=== PATIENT | female | born 1980 | race African-American/Black ===

== ENCOUNTER 2025-10-25 14:28 | Inpatient (IN) | payer MEDICAID, OTHER ==
[~2025-10-25] VITALS: Ht 172.7 cm; Wt 113.4 kg
--- NOTE | 2025-10-25 14:40 | ED.PDOC ---
HPI Comments This is a 44 year old female presenting to the ED with chief complaint of chest pain. Patient reports that she has been experiencing left sided chest heaviness with associated SOB, radiation of pain to her back, shoulders, and arms for the past 30 minutes. Patient relays that she has history of 2 heart attacks in the past along with stents placed. Patient denies any N/V, abdominal pain, headache, dizziness, or syncope. Chief Complaint: Chest Pain Time Seen by MD: 14:38 Reviewed Notes: Nurses Notes, Medications, Allergies Allergies: Coded Allergies: No Known Drug Allergy (Verified Allergy, Unknown, 10/25/25) Information Source: Patient Mode of Arrival: Ambulatory Severity: Moderate Timing: Minutes Duration: Since onset Prehospital treatment: None Location: Chest (L) Radiation: Back, Shoulder (R), Shoulder (L), Arm (R), Arm (L) Quality: Heavy Onset: At Rest Cardiac Risk Factors: HTN, Diabetes PE Risk Factors: None History of: Similar pain in past, NV, Aortic Disease Associated Signs and Symptoms: SOB Past Medical History PAST MEDICAL HISTORY: CAD, DM, HTN, NV 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 Family History Family History: Reviewed,noncontributory to illness Social History Smoker: Non-Smoker Alcohol: Denies ETOH Use Drugs: Denies Drug Use Lives In: Home Constitutional: denies: chills, diaphoresis, fatigue, fever, malaise, sweats, weakness, others EENTM: denies: blurred vision, double vision, ear bleeding, ear discharge, ear drainage, ear pain, ear ringing, eye pain, eye redness, hearing loss, mouth pain, mouth swelling, nasal discharge, nose bleeding, nose congestion, nose pain, photophobia, tearing, throat pain, throat swelling, voice changes, others Respiratory: reports: shortness of breath; denies: cough, hemoptysis, orthopnea, SOB at rest, SOB with excertion, stridor, wheezing, others Cardiovascular: reports: chest pain; denies: dizzy spells, diaphoresis, Dyspnea on exertion, edema, irregular heart beat, left arm pain, lightheadedness, palpitations, PND, syncope, others Gastrointestinal: denies: abdomen distended, abdominal pain, blood streaked bowels, constipated, diarrhea, dysphagia, difficulty swallowing, hematemesis, melena, nausea, poor appetite, poor fluid intake, rectal bleeding, rectal pain, vomiting, others Genitourinary: denies: abnormal vagina bleeding, burning, dyspareunia, dysuria, flank pain, frequency, hematuria, incontinence, pain, , vagina discharge, urgency, others Neurological: denies: dizziness, fainting, headache, left sided numbness, left sided weakness, numbness, paresthesia, pre-existing deficit, right sided numbness, right sided weakness, seizure, speech problems, tingling, tremors, weakness, others Musculoskeletal: reports: others (Bilat arm pain); denies: back pain, gout, joint pain, joint swelling, muscle pain, muscle stiffness, neck pain Integumetry: denies: bruises, change in color, change in hair/nails, dryness, l aceration, lesions, lumps, rash, wounds, others Allergic/Immunocompromised: denies: Difficulty Healing, Frequent Infections, Hives, Itching, others Hematologic/Lymphatic: denies: anemia, blood clots, easy bleeding, easy bruising, swollen glands, others Endocrine: denies: excessive hunger, excessive sweating, excessive thirst, excessive urination, flushing, intolerance to cold, intolerance to heat, unexplained weight gain, unexplained weight loss, others Psychiatric: denies: anxiety, bipolar disorder, depression, hopeless, panic disorder, schizophrenia, sleepless, suicidal, others All Other Systems: Reviewed and Negative Physical Exam General Appearance: Moderate Distress, Normal HEENT: Normal ENT Inspection, Pharynx Normal, TMs Normal Neck: Full Range of Motion, Non-Tender, Normal, Normal Inspection Respiratory: Chest Non-Tender, Lungs Clear, No Accessory Muscle Use, No Respiratory Distress, Normal Breath Sounds Cardiovascular: No Edema, No JVD, No Murmur, No Gallop, Normal Peripheral Pulses, Regular Rate/Rhythm Breast Exam: Deferred Gastrointestinal: No Organomegaly, Non Tender, No Pulsatile Mass, Normal Bowel Sounds, Soft Genitalia: Deferred Pelvic: Deferred Rectal: Deferred Extremities: No calf tenderness, Normal capillary refill, Normal inspection, Normal range of motion, Non-tender, No pedal edema Musculoskeletal : Apperance: Normal Neurologic: Alert, manager bank II-XII nml as Tested, No Motor Deficits, Normal Affect, Normal Mood, No Sensory Deficits Cerebellar Function: Normal Reflexes: Normal Skin: Dry, Normal Color, Warm Peripheral Pulses: 3+ Radial (R), 3+ Radial (L) Lymphatic: No Adenopathy EKG EKG : Pulse Rate (adult): 77 Cardiac Rhythm: NSR Was a procedure done? Was a procedure done?: No CP Differential Dx Differential Diagnosis: A-fib, A-Flutter, Angina, Anxiety / Panic Attack, Atrial Dysrhythmia, Electrolyte Disorder X-Ray, Labs, Meds, VS Vital Signs Date Time Temp Pulse Resp B/P (MAP) Pulse Ox O2 Delivery O2 Flow Rate FiO2 10/25/25 14:30 98.2 77 16 165/103 100 98.2 Patient alert. Came in because of chest pain. Blood pressure elevated. Saturation pristine on room air. EKG reviewed does not show any acute changes. Was given clonidine. Strong history of coronary artery disease. Possibly will need echocardiogram. Stress test. Explained to the patient. Continue monitoring. Time of 1ST Reevaluation: 15:37 Reevaluation 1ST: Unchanged Patient Education/Counseling: Diagnosis, Treatment Family Education/Counseling: No Family Present SEPSIS Sepsis Screen Date sepsis recognized/suspect: Oct 25, 2025 Time Sepsis recognized/suspect: 1433 Recent Procedure: No On Antibiotic Therapy: No Respiratory Rate >20: No Heart Rate >90: No Temp<36 C (96.8 F) or >38.3 C: No SBP <90 or MAP <65 mmHG: No New Acute Mental Status Change: No Is the patient on CPAP, BIPAP,: No Physician Orders Complete Blood Count (10/25/25 14:31) Urinalysis (10/25/25 14:31) Troponin-I Hs (10/25/25 14:31) Troponin-I Hs (10/25/25 15:31) Troponin-I Hs (10/25/25 17:31) Basic Metabolic Panel (10/25/25 14:31) Vital Signs Date Time Temp Pulse Resp B/P (MAP) Pulse Ox O2 Delivery O2 Flow Rate FiO2 10/25/25 14:30 98.2 77 16 165/103 100 98.2 Departure 1 Departure Time of Disposition: 14:58 Impression: Primary Impression: Chest pain of unknown etiology Disposition: ADMITTED INPATIENT Admit to: Med Surg Condition: Guarded Critical Care Note Critical Care Time?: No Stability Stability form required: No Heart Score Heart Score: Heart Score Response (Comments) Value History Highly Suspicious 2 EKG Normal 0 Age 45-64 1 Risk Factors >3 or Hx ASHD 2 Troponin Normal limit 0 Total 5 I personally scribed for TANIA WU MD ([email or web address]) on 10/25/25 at 14:40. Electronically submitted by Teo Fofana ([email or web address]). TANIA WU MD Oct 25, 2025 14:40
[2025-10-25 15:04] LABS: Hemoglobin 11.7 g/dL (12.2-16.2)
[2025-10-25 15:06] LABS: Hematocrit 36.3 % (36.0-46.0); Mean Corpuscular Hemoglobin 25.5 pg (28.0-32.0); Mean Corpuscular Volume 79.5 fL (80.0-100.0); Nucleated Red Blood Cells % 0.0 %
--- NOTE | 2025-10-25 15:08 | ECG ---
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
[2025-10-25 15:12] LABS: Chloride 105 mmol/L (98-107); Potassium 4.0 mmol/L (3.5-5.1); Sodium 142 mmol/L (136-145)
[2025-10-25 15:13] LABS: Anion Gap 9 (5-15); Carbon Dioxide 28 mmol/L (20-31)
[2025-10-25 15:14] LABS: Calcium 9.4 mg/dL (8.7-10.4)
[2025-10-25 15:18] LABS: Glucose 76 mg/dL (74-106)
[2025-10-25 15:19] LABS: BUN/Creatinine Ratio 8.7 (10.0-20.0)
[2025-10-25 15:20] LABS: Blood Urea Nitrogen 8 mg/dL (9-23)
--- NOTE | 2025-10-25 15:30 | DVH ---
CHEST RADIOGRAPH Indication: sob Technique: Single frontal view of the chest was obtained COMPARISON: None FINDINGS: Lines and Tubes: None Lungs: Clear Pleura: No effusion. No pneumothorax. Cardiomediastinal contours: Unremarkable Bones: Unremarkable IMPRESSION: No acute disease.
[2025-10-25 17:19] LABS: Urine Protein, UAD Negative (Negative)
[2025-10-25] MEDS ORDERED: ACETAMINOPHEN 325 MG TAB PO PRN (17:45)
[2025-10-25] MEDS ORDERED: DEXTROSE (50%) 50ML SYRG IV PRN (17:45)
--- NOTE | 2025-10-25 17:59 | DVHHP2 ---
History of Present Illness History of Present Illness 44-year-old female with a past medical history of coronary artery disease (diagnosed in 2014 during ), hypertension, and diabetes who presents with chest pressure that radiates to the jaw and bilateral arm numbness. Pain is exertional and worsens with walking. She has not followed with cardiology for many years. EKG is normal without ST-segment elevations. Serial troponins are negative. CBC, BMP, UA, and urine tox are normal. Chest X-ray is unremarkable. Home medications include [place], Tizanidine, Naloxone, Omeprazole, and Oxybutynin. Blood pressures on arrival were elevated, up to 165/103 and later 146/86. She will be admitted for further evaluation. PMH: Coronary artery disease (2014), hypertension, diabetes. PSH: Denies major surgeries on interview. Social history: Denies tobacco, alcohol, or drug use. Lives independently. Review of Systems Review of Systems ROS: Denies fever, chills, cough, palpitations, abdominal pain, nausea, vomiting, urinary symptoms, focal weakness, or vision changes. Allergies: Coded Allergies: No Known Drug Allergy (Verified Allergy, Unknown, 10/25/25) Medications Current Medications Medications Dose Ordered Sig/Karthik Route Start Time Stop Time Status Last Admin Dose Admin Acetaminophen 650 mg Q6HP PRN PO 10/25/25 17:45 UNV Acetaminophen/ Hydrocodone Bitart 1 tab Q4HP PRN PO 10/25/25 17:45 UNV Enoxaparin Sodium 40 mg DAILY SC 10/26/25 10:00 UNV Aspirin 81 mg DAILY PO 10/26/25 10:00 UNV Diagnostic Test (Pha) 1 strip ACHS 10/25/25 22:00 UNV Insulin Human Regular ACHS SC 10/25/25 22:00 UNV Dextrose 50 ml UD PRN IV 10/25/25 17:45 UNV Losartan Potassium 50 mg DAILY PO 10/25/25 17:45 UNV Exam Vital Signs Vital Signs Date Time Temp Pulse Resp B/P (MAP) Pulse Ox O2 Delivery O2 Flow Rate FiO2 10/25/25 16:13 98.5 74 16 146/86 (106) 99 98.5 Exam Physical exam: General: Alert, no acute distress. Lungs: Clear to auscultation bilaterally. Heart: Regular rate and rhythm, no murmurs. Abdomen: Soft, non-tender. Extremities: No edema. Neuro: Nonfocal. Skin: Warm, dry. Labs/Xrays Labs Test 10/25/25 16:58 10/25/25 15:25 10/25/25 14:40 Range/Units Urine Color Colorless Yellow Urine Clarity Clear Clear Urine pH 7.0 5.0-9.0 Urine Specific [place] 1.011 1.001-1.035 Urine Protein Negative Negative Urine Ketones Negative Negative Urine Blood Negative Negative /uL Urine Nitrite Negative Negative Urine Bilirubin Negative Negative Urine Urobilinogen Normal Negative mg/dL Urine Leukocyte Esterase Negative Negative /uL Urine RBC <1 0 - 4 /hpf Urine Microscopic WBC < 1 0-5 /HPF Urine Squamous Epithelial Cells Few <5 /hpf Urine Bacteria None seen None Seen /hpf Urine Glucose Normal Normal mg/dL Troponin I High Sensitivity 3 L </=34 ng/L White Blood Count 6.2 4.4-10.8 10^3/uL Red Blood Count 4.57 4.0-5.20 10^6/uL Hemoglobin 11.7 L 12.2-16.2 g/dL Hematocrit 36.3 36.0-46.0 % Mean Corpuscular Volume 79.5 L 80.0-100.0 fL Mean Corpuscular Hemoglobin 25.5 L 28.0-32.0 pg Mean Corpuscular Hemoglobin Concent 32.1 32.0-36.0 g/dL Red Cell Distribution Width 18.5 H 11.8-14.3 % Platelet Count 181 140-450 10^3/uL Mean Platelet Volume 9.0 6.9-10.8 fL Neutrophils (%) (Auto) 50.8 37.0-80.0 % Lymphocytes (%) (Auto) 37.8 10.0-50.0 % Monocytes (%) (Auto) 9.3 0.0-12.0 % Eosinophils (%) (Auto) 1.3 0.0-7.0 % Basophils (%) (Auto) 0.8 0.0-2.0 % Neutrophils # (Auto) 3.1 1.6-8.6 10 ^3/uL Lymphocytes # (Auto) 2.3 0.4-5.4 10 ^3/uL Monocytes # (Auto) 0.6 0-1.3 10 ^3/uL Eosinophils # (Auto) 0.1 0-0.8 10 ^3/uL Basophils # (Auto) 0 0-0.2 10 ^3/uL Nucleated Red Blood Cells 0.0 % Sodium Level 142 136-145 mmol/L Potassium Level 4.0 3.5-5.1 mmol/L Chloride Level 105 98-107 mmol/L Carbon Dioxide Level 28 20-31 mmol/L Anion Gap 9 5-15 Blood Urea Nitrogen 8 L 9-23 mg/dL Creatinine 0.92 0.550-1.02 mg/dL Glomerular Filtration Rate Calc 78 >90 mL/min BUN/Creatinine Ratio 8.7 L 10.0-20.0 Serum Glucose 76 74-106 mg/dL Calcium Level 9.4 8.7-10.4 mg/dL SEPSIS Sepsis Screen Date sepsis recognized/suspect: Oct 25, 2025 Time Sepsis recognized/suspect: 1433 Recent Procedure: No On Antibiotic Therapy: No Respiratory Rate >20: No Heart Rate >90: No Temp<36 C (96.8 F) or >38.3 C: No SBP <90 or MAP <65 mmHG: No New Acute Mental Status Change: No Is the patient on CPAP, BIPAP,: No Physician Orders Troponin-I Hs (10/25/25 17:31) Chest Portable (10/25/25 15:00) Electrocardigram (10/25/25 16:06) Admit (10/25/25 17:42) Code Status (10/25/25 17:42) Vital Signs .PER UNIT PROTOCOL (10/25/25 17:42) Review Orders With Adm. (10/25/25 17:42) Consistent Carb(Ccho)Diabetes (10/25/25 Dinner) Acetaminophen Tablet (Tylenol Tablet) (10/25/25 17:45) Notify Md Of Changes From Base (10/25/25 17:42) Advance Directive (10/25/25 17:42) Echo 2d Mode Cardiac Dop (10/25/25 17:42) Patient Condition (10/25/25 17:42) Allergies (10/25/25 17:42) Hydrocodone-Acet 5/325mg Tab ([place] 5/32 (10/25/25 17:45) Drug Screen (10/25/25 17:42) Hemoglobin A1c (10/25/25 17:42) Enoxaparin Sodium (Lovenox) (10/26/25 10:00) Oxygen By Nasal Cannula (10/25/25 17:42) Stat Ekg For Chest Pain (10/25/25 17:42) Notify Of Changes From Base (10/25/25 17:42) Gizzard Skin Remover For 24 Hours (10/25/25 17:42) Emergency Dysrhythmia Protocol (10/25/25 17:42) Rhythm Strips Once Every Shift (10/25/25 17:42) Aspirin Chewable Tablet (10/26/25 10:00) Glucose Blood (Accu-Chek Comfort Curve T (10/25/25 22:00) Insulin R (Human) (Insulin R) (10/25/25 22:00) Dextrose 50% Syringe (10/25/25 17:45) Losartan Tablet (Cozaar Tablet) (10/25/25 17:45) * Cardiology Consult (10/25/25 17:50) Vital Signs Date Time Temp Pulse Resp B/P (MAP) Pulse Ox O2 Delivery O2 Flow Rate FiO2 10/25/25 16:13 98.5 74 16 146/86 (106) 99 98.5 10/25/25 15:24 71 10/25/25 14:40 77 10/25/25 14:36 77 10/25/25 14:30 98.2 77 16 165/103 100 98.2 Laboratory Tests Test 10/25/25 14:40 White Blood Count 6.2 10^3/uL (4.4-10.8) Assessment/Plan Assessment/Plan #Chest pain #Rule out ACS # Coronary artery disease History of CAD with new exertional chest pressure warrants inpatient evaluation for possible unstable angina despite negative initial tests. Continue aspirin and initiate guideline-directed therapy with losartan; obtain cardiology consult for potential stress test or further workup. Aspirin daily # Hypertension BP elevated on arrival and remains above goal, likely from medication nonadherence and pain. Start losartan, monitor pressures closely, adjust antihypertensive regimen as needed during admission. # Diabetes mellitus type [address] on sliding scale insulin Case discussed with Dr Gordon Full code Plan discussed with: Patient, Other My Orders Orders - JOSE M TRAN Procedure Category Date Status Time Admit ADMIT 10/25/25 Transmitted 17:42 Code Status CODE 10/25/25 Transmitted 17:42 Vital Signs VAMSHI 10/25/25 In Process 17:42 Review Orders With VAMSHI 10/25/25 In Process Adm. 17:42 Consistent DIET 10/25/25 Transmitted Carb(Ccho)Diabetes Dinner Acetaminophen Tablet PHA 10/25/25 Logged (Tylenol Tablet) 17:45 Notify Md Of Changes [facility] 10/25/25 In Process From Base 17:42 Advance Directive VAMSHI 10/25/25 In Process 17:42 Echo 2d Mode Cardiac US 10/25/25 Logged DOP 17:42 Patient Condition ORDERS 10/25/25 Transmitted 17:42 Allergies VAMSHI 10/25/25 In Process 17:42 Hydrocodone-Acet PHA 10/25/25 Logged 5/325mg Tab ([place] 17:45 Drug Screen LAB 10/25/25 Logged 17:42 Hemoglobin A1c LAB 10/25/25 In Process 17:42 Enoxaparin Sodium [facility] 10/26/25 Logged (Lovenox) 10:00 Oxygen By Nasal RT 10/25/25 Transmitted Cannula 17:42 Stat Ekg For Chest [facility] 10/25/25 In Process Pain 17:42 Notify Md Of Changes [facility] 10/25/25 In Process From Base 17:42 Gizzard Skin Remover For [facility] 10/25/25 In Process 24 Hours 17:42 Emergency Dysrhythmia [facility] 10/25/25 In Process Protocol 17:42 Rhythm Strips Once [facility] 10/25/25 In Process Every Shift 17:42 Aspirin Chewable [facility] 10/26/25 Logged Tablet 10:00 Glucose Blood [facility] 10/25/25 Logged (Accu-Chek Comfort 22:00 Insulin R (Human) PHA 10/25/25 Logged (Insulin R) 22:00 Dextrose 50% Syringe PHA 10/25/25 Logged 17:45 Losartan Tablet [facility] 10/25/25 Logged (Cozaar Tablet) 17:45 * Cardiology Consult CONS 10/25/25 Transmitted 17:50 Date of Service: Oct 25, 2025 Billing Provider: JOSE M TRAN Common Visit Codes: [id number] INP/OBS CARE (HIGH) JOSE M TRAN Oct 25, 2025 17:59
[2025-10-25 18:33] LABS: Opiate Scree,Urine Neg (NEGATIVE)
[2025-10-25 18:34] LABS: Amphetamine Screen, Urine Neg (NEGATIVE); Barbiturate Scree,Urine Neg (NEGATIVE); Benzodiazephine Screen, Urine Neg (NEGATIVE); Cannabinoid Screen, Urine Neg (NEGATIVE); Cocaine Screen, Urine Neg (NEGATIVE); Phencyclidine Screen, Urine Neg (NEGATIVE)
[2025-10-25] MEDS: LOSARTAN POTASSIUM 50 MG TAB PO SCH (20:09)
[2025-10-25 21:20] VITALS: BP 152/96; PULSE 57; RESP 16; TEMP 97.9; O2SAT 100
[2025-10-25 21:24] VITALS: BP 152/96; PULSE 59; RESP 16; TEMP 97.9; O2SAT 100
[2025-10-25] MEDS: InsuLIN REG 1unit/0.01ml Soln (100units/ml) SC SCH (22:00)
[2025-10-25] MEDS: ACCU-CHEK COMFORT CURVE STRIP VI SCH (22:03)
[2025-10-25] MEDS: HYDROcodone-ACET 5/325MG TAB PO PRN (22:04)
[2025-10-25] MEDS ORDERED: LOSA-533 PO (22:44)
[2025-10-25] MEDS ORDERED: HYDR1TAB97 PO (22:44)
[2025-10-25] MEDS ORDERED: METF-489 PO (22:44)
[2025-10-25] MEDS ORDERED: ASPI1TAB20 PO (22:44)
[2025-10-25] MEDS ORDERED: FLUT250M2 INH (22:50)
[2025-10-25] MEDS ORDERED: OXYB5TAB14 PO (22:50)
[2025-10-25] MEDS ORDERED: RIME75TA PO (22:50)
[2025-10-25] MEDS ORDERED: NITR0.4S29 SL (22:50)
[2025-10-25] MEDS ORDERED: MONT-8 PO (22:50)
[2025-10-25] MEDS ORDERED: EZET10TA22 PO (22:50)
[2025-10-25] MEDS ORDERED: PREG75CA PO (22:50)
[2025-10-25] MEDS ORDERED: ROSU20TA14 PO (22:50)
[2025-10-25] MEDS ORDERED: ERGO2000 PO (22:50)
[2025-10-25] MEDS ORDERED: AML5T PO (22:50)
[2025-10-26] VITALS (12 sets, daily range): BP systolic 120–159; BP diastolic 84–100; PULSE 64–106; RESP 16–20; TEMP 97.3–98.5; O2SAT 96–100
[2025-10-26 03:25] LABS: Mean Corpuscular Hemoglobin 25.6 pg (28.0-32.0)
[2025-10-26 03:27] LABS: Hematocrit 37.0 % (36.0-46.0); Hemoglobin 12.0 g/dL (12.2-16.2); Mean Corpuscular Volume 78.9 fL (80.0-100.0); Nucleated Red Blood Cells % 0.1 %
[2025-10-26 03:35] LABS: Alanine Aminotransferase 23 U/L (7-40); Albumin 4.0 g/dL (3.2-4.8); Alkaline Phosphatase 64 U/L (46-116); Anion Gap 9 (5-15); BUN/Creatinine Ratio 8.0 (10.0-20.0); Bilirubin, Total 0.4 mg/dL (0.2-1.0); Calcium 9.0 mg/dL (8.7-10.4); Carbon Dioxide 27 mmol/L (20-31); Chloride 104 mmol/L (98-107); Sodium 140 mmol/L (136-145); Total Protein 7.6 g/dL (5.7-8.2)
[2025-10-26 03:47] LABS: Blood Urea Nitrogen 7 mg/dL (9-23); Glucose 128 mg/dL (74-106); Potassium 3.4 mmol/L (3.5-5.1)
[2025-10-26] MEDS: ATORVASTATIN 20 MG TAB PO SCH (07:30)
[2025-10-26 08:34] LABS: Hematocrit 42.1 % (36.0-46.0); Hemoglobin 13.3 g/dL (12.2-16.2); Mean Corpuscular Hemoglobin 25.3 pg (28.0-32.0); Mean Corpuscular Volume 80.4 fL (80.0-100.0); Nucleated Red Blood Cells % 0.2 %
[2025-10-26 08:37] LABS: Alanine Aminotransferase 23 U/L (7-40); Albumin 4.2 g/dL (3.2-4.8); Alkaline Phosphatase 71 U/L (46-116); Anion Gap 10 (5-15); BUN/Creatinine Ratio 7.3 (10.0-20.0); Calcium 9.2 mg/dL (8.7-10.4); Carbon Dioxide 24 mmol/L (20-31); Chloride 106 mmol/L (98-107); Glucose 86 mg/dL (74-106); Magnesium 2.1 mg/dL (1.6-2.6); Potassium 4.0 mmol/L (3.5-5.1); Sodium 140 mmol/L (136-145); Total Protein 8.2 g/dL (5.7-8.2)
[2025-10-26 08:38] LABS: Bilirubin, Total 0.5 mg/dL (0.2-1.0)
[2025-10-26 08:40] LABS: Blood Urea Nitrogen 6 mg/dL (9-23)
[2025-10-26] MEDS: ALBUTEROL SULF 2.5 MG/0.5ML(0.5%) NEB SOLN NEB SCH (09:15)
[2025-10-26] MEDS: IPRATROPIUM BROM 0.5 MG/2.5ML INH SOL NEB SCH (09:15)
[2025-10-26] MEDS: methylPREDNISolone SOD SUCC 40 MG/ML VL IV SCH (09:58)
[2025-10-26] MEDS ORDERED: ENOXAPARIN SOD 40 MG/0.4 ML SYRINGE SC SCH (10:00)
[2025-10-26] MEDS: HEPARIN SODIUM (PORCINE) 5000 UNITS/ML 1ML VIAL SC SCH (10:00)
[2025-10-26 11:18] LABS: COVID19 ANTIGEN SOFIA FIA NEGATIVE (NEGATIVE)
--- NOTE | 2025-10-26 12:37 | DVHPNRES ---
Progress Note Date Seen: Oct 26, 2025 Resident Creating Document: JESSICA [address] RESIDENT Medical Necessity Reason Pt with a Central, PICC or Fol: No Subjective Review of Systems 44-year-old female with a past medical history of coronary artery disease, status post PTCA x2 (diagnosed in 2013 during ), hypertension, and diabetes, disc disease, asthma, chronic back pain who presents with chest pain. Chest pain started 3 days before while she was walking, 8/10, intermittent, radiating to the left arm and back, associated shortness of breaths and dry cough, nausea but no vomiting. Patient denied any fever, palpitation, acute joint redness or swelling, diarrhea, change in vision or dysarthria. Patient reported he was taking medicine off and on but not regularly, was not follow up with the PCP or Cardiology due to financial issue. Initial lab workup revealed EKG no acute changes, troponin I and BNP with a normal limit. Hemoglobin A1c 6.0. Chest x-ray no acute abnormality. UDS negative, urinalysis negative for UTI. COVID and flu negative. Pain is exertional and worsens with walking. She has not followed with cardiology for many years. EKG is normal without ST-segment elevations. Serial troponins are negative. CBC, BMP, UA, and urine tox are normal. Chest X-ray is unremarkable. Home medications include [place], Tizanidine, Naloxone, Omeprazole, and Oxybutynin. Blood pressures on arrival were elevated, up to 165/103 and later 146/86. She will be admitted for further evaluation. PMH:coronary artery disease, status post PTCA x2 (diagnosed in 2013 during ), hypertension, and diabetes, disc disease, asthma, chronic back pain PSH: Left ovarian removal due to cyst Social history: Occasional alcoholic, denies smoking or drug abuse, lives with the son and daughter Allergy pork ROS Cardiovascular- d chest pain, shortness of breaths, cough Respiratory cough, shortness of breaths Gastrointestinal- denies any rectal bleeding, nausea or vomiting Musculoskeletal-denies acute joint swelling or tenderness or redness Neurological- denies acute dysarthria, dysphagia, change in vision Psychiatry- denies depression or SI or HI Skin- denies acute rash or purpura Patient was seen today at bedside, labs and chart reviewed, patient has a crackles with a vesicular breath sounds and prolonged expiration on physical examination, pending echo 2D, pending cardiology consult Objective vital signs Vital Sign Date Time Temp Pulse Resp B/P (MAP) Pulse Ox O2 Delivery O2 Flow Rate FiO2 10/26/25 10:07 88 18 99 10/26/25 10:01 Room Air* 0 21 10/26/25 10:01 97.3 120/84 97.3 Total Intake and Output 10/25/25 10/25/25 10/26/25 15:00 23:00 07:00 Intake Total 240 ml Balance 240 ml medications Current Medications Medications Dose Ordered Sig/Karthik Route Start Time Stop Time Status Last Admin Dose Admin Acetaminophen 650 mg Q6HP PRN PO 10/25/25 17:45 Acetaminophen/ Hydrocodone Bitart 1 tab Q4HP PRN PO 10/25/25 17:45 10/25/25 22:04 1 TAB Aspirin 81 mg DAILY PO 10/26/25 10:00 10/26/25 09:58 81 MG Diagnostic Test (Pha) 1 strip ACHS 10/25/25 22:00 10/26/25 06:33 1 STRIP Insulin Human Regular ACHS SC 10/25/25 22:00 Dextrose 50 ml UD PRN IV 10/25/25 17:45 Losartan Potassium 50 mg DAILY PO 10/25/25 17:45 10/26/25 09:59 50 MG Atorvastatin Calcium 20 mg HS PO 10/26/25 07:30 Albuterol 2.5 mg Q4HR NEB 10/26/25 09:15 10/26/25 10:01 2.5 MG Ipratropium [place] 0.5 mg Q4HWA [facility] 10/26/25 09:15 10/26/25 10:01 0.5 MG Methylprednisolone Sodium Succinate 40 mg BID IV 10/26/25 09:15 10/26/25 09:58 40 MG Heparin Sodium (Porcine) 5,000 units Q12HR SC 10/26/25 10:00 Examination General examination- awake, alert, oriented HEENT- PEERLA, no acute nasal discharge Cardiovascular- S1-S2 audible, rate and rhythm regular, no murmur, chest wall tenderness positive on palpation Respiratory- lung crackles, vesicular breath sounds with a prolonged explained Gastrointestinal-nontender, bowel sound+. Nondistended Musculoskeletal-no acute joint swelling or tenderness or redness Lower extremity- no leg edema Neurological- cranial nerves intact, no acute dysarthria or dysphagia Psychiatry- denies depression or SI or HI Skin- no acute rash or purpura laboratory and microbiology Laboratory Tests 10/26/25 08:05 Test 10/26/25 08:05 Range/Units Serum Glucose 86 74-106 mg/dL Problem List/Assessment/Plan Problem List/Assessment/Plan Assessment and plan Acute chest pain, rule out acute coronary syndrome # CAD, status post PTCA x2 in 2014 in [place] # hypertension ## hyperlipidemia -EKG acute ST or T-wave changes -troponin I with a normal limit -BNP with a normal limit -continue aspirin as prescribed -atorvastatin as prescribed -pending echo 2D -pending cardiology consult - # asthma with the acute exacerbation -nebulization with albuterol and ipratropium bromide at the prescribed -methylprednisolone as prescribed # obesity -counseled about the effect of obesity on health Goals of care, Code status full code ; discussed with >15 minutes PUD prophylaxis: Pantoprazole DVT prophylaxis: Heparin Plan discussed with Dr. Gordon , nursing staff, Total time spent on patient evaluation, chart review, assessment and plan, discussion discussion >35 minutes Plan discussed with: Patient, Other (RN) My Orders My Orders Orders - JESSICA STRE[address] RESIDENT Procedure Category Date Status Time Potassium LAB 10/27/25 Verified 04:00 Vitamin B12 LAB 10/26/25 In Process 07:21 Vitamin D, 25-Hydroxy LAB 10/26/25 In Process 07:21 Folate (Folic Acid) LAB 10/26/25 In Process 07:21 Thyroid Stimulating LAB 10/26/25 In Process Hormone 07:21 Atorvastatin (Lipitor) PHA 10/26/25 In Process 07:30 Albuterol Medneb PHA 10/26/25 In Process (Ventolin Medneb) 09:15 Ipratropium Medneb PHA 10/26/25 In Process (Atrovent Medneb) 09:15 Methylprednisolone PHA 10/26/25 In Process Sod Succ (Solu Medrol 09:15 Heparin Sodium PHA 10/26/25 In Process (Porcine) 10:00 Visit Coding STANDARD RES Billing Provider: LUKE GORDON MD Date of Service if different f: Oct 26, 2025 Common Visit Codes: [id number] INP/OBS CARE(HIGH) [address] RESIDENT Oct 26, 2025 12:37
[2025-10-27] VITALS (10 sets, daily range): BP systolic 124–139; BP diastolic 74–90; PULSE 85–113; RESP 16–19; TEMP 97.6–98.6; O2SAT 95–98
[2025-10-27 07:17] LABS: Chloride 105 mmol/L (98-107); Potassium 4.4 mmol/L (3.5-5.1); Sodium 140 mmol/L (136-145)
[2025-10-27 07:18] LABS: Anion Gap 11 (5-15); Calcium 9.9 mg/dL (8.7-10.4); Carbon Dioxide 24 mmol/L (20-31)
[2025-10-27 07:23] LABS: BUN/Creatinine Ratio 11.8 (10.0-20.0); Blood Urea Nitrogen 11 mg/dL (9-23)
[2025-10-27 07:24] LABS: Glucose 143 mg/dL (74-106); Magnesium 2.1 mg/dL (1.6-2.6)
[2025-10-27 09:24] LABS: Triglycerides 82 mg/dL (< 150)
[2025-10-27 09:26] LABS: HDL Cholesterol 57 mg/dL (40-59)
[2025-10-27 09:27] LABS: Cholesterol 238 mg/dL (< 200)
--- NOTE | 2025-10-27 10:07 | ECG ---
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
--- NOTE | 2025-10-27 10:12 | DVHINCON2 ---
Date Seen: Oct 27, 2025 Referring Physician MD Jorge resident Reason for Consultation Chest pain History of Present Illness This is a 44-year-old female patient who presents to emergency room with chief complaint of chest pain. The patient reports that she has been experiencing chest pain for approximately four days. She describes the pain as unprovoked, intermittent, pressure-like in nature, substernal with radiation to her upper back. She denies any aggravating or alleviating factors. Initial twelve lead electrocardiogram reveals normal sinus rhythm with nonspecific ST depression to inferior lead (III). Serial troponin levels have been negative x 3. Signific ant past medical history includes coronary artery disease status post PTCA X 2 ANIBAL (on ASA), myocardial infarction, hypertension, hyperlipidemia, obstructive sleep apnea with CPAP use at night, asthma, type 2 diabetes mellitus, peripheral neuropathy, seizure disorder, and morbid obesity. The patient reports having a myocardial infarction while she was with her daughter in 2013. She reports undergoing a coronary angiogram in 2013 in [place] in which two drug-eluting stents were placed. The patient does not currently follow up with a forepart rounder in the outpatient setting. She does mention a previous stress test in 2021 which she states was normal. Past Medical History Past medical history reviewed. No other significant than mentioned above. Past Surgical History Left oophorectomy Family History: Cardiovascular disease G8 MOTHER FH: kidney disease G8 MOTHER Family History Family history reviewed. Social History Denies the use of tobacco, alcohol or illicit drugs. Allergies: Uncoded Allergies: pork (Allergy, Unknown, 10/26/25) Home Meds Reported Medications Nitroglycerin (NTROSTAT SUBLINGUAL) 0.4 Mg Sl, 0.4 MG SL PRN, TAB *MAY REPEAT EVERY 5 MINUTES X 3 TOTAL IF NO RELIEF, INITIATE ANALGESIC THERAPY. NOTIFY PHYSICIAN *Do not crush. 10/25/25 Ezetimibe (Zetia) 10 Mg Tab, 1 TAB PO DAILY, #30 TAB 5 Refills 10/25/25 Amlodipine Besylate (NORVASC TABLET) 5 Mg Tb, 1 TAB PO DAILY, #30 TAB 5 Refills 10/25/25 Montelukast Sodium (MONTELUKAST SODIUM) 10 Mg Tab, 1 TAB PO DAILY, #30 TAB 5 Refills 10/25/25 Pregabalin (Lyrica) 75 Mg Cap, 1 CAP PO BID, #60 CAP 1 Refill 10/25/25 Rimegepant Sulfate (Nurtec) 75 Mg Tab, 75 MG PO, TAB 10/25/25 Fluticasone-Salmeterol (Advair Diskus 250/50) 1 Puff Ih, 1 PUFF INH BID, #1 INHALER 5 Refills 10/25/25 Ergocalciferol (VITAMIN D2) 2,000 Unit Tab, 46880 UNIT PO QWEEKLY, TAB 10/25/25 Oxybutynin Chloride (Oxybutynin Chloride) 5 Mg Tab, 5 MG PO, TAB 10/25/25 Rosuvastatin Calcium (Crestor) 20 Mg Tab, 1 TAB PO DAILY, #90 TAB 3 Refills 10/25/25 Hydrocodone-Acetaminophen (Hydrocodone/Acetaminophen 5-325 mg) 1 Tab Tab, 1 TAB PO, TAB 10/25/25 Metformin Hydrochloride (METFORMIN HCL ER) 500 Mg Tab, 500 MG PO, TAB 10/25/25 Aspirin (Aspir-81) 81 Mg Tab, 1 TAB PO DAILY, #30 TAB 5 Refills 10/25/25 Losartan Potassium (Losartan Potassium) 25 Mg Tab, 25 MG PO BID, TAB 10/25/25 Home Meds Home medications reviewed. Current Medications Current Medications Medications (Trade) Dose Ordered Sig/Karthik Route PRN Reason Start Time Stop Time Status Last Admin Enoxaparin Sodium (Lovenox) 40 mg DAILY SC 10/26/25 10:00 10/26/25 09:09 DC Aspirin 81 mg DAILY PO 10/26/25 10:00 10/26/25 09:58 Heparin Sodium (Porcine) 5,000 units Q12HR SC 10/26/25 10:00 Review of Systems Constitutional: No symptom reported Ears, Nose, & Throat: No symptom reported Eyes: No symptom reported Neurological: No symptoms reported Pulmonary/Respiratory: No symptoms reported Cardiovascular: Chest pain Gastrointestinal: No symptom reported Genitourinary: No symptom reported Musculoskeletal: No symptom reported Skin: No symptom reported Psychiatric: No symptom reported Endocrine: No symptom reported Hematologic/Lymphatic: No symptom reported Vital Signs Vital Signs Date Time Temp Pulse Resp B/P (MAP) Pulse Ox O2 Delivery O2 Flow Rate FiO2 10/27/25 09:00 97.6 87 16 136/89 (105) 97 97.6 10/27/25 06:49 Room Air 10/27/25 06:49 0 21 Physical Exam General Appearance: Cooperative. Morbidly obese Pulmonary/Respiratory: Clear, bilateral breaths sounds. Cardiovascular/Chest: Regular rate and rhythm. Peripheral Pulses: 2+ Radial (R). 2+ Radial (L). 2+ Pedal (R). 2+ Pedal (L) Abdominal Exam: Normal bowel sounds. Ankle Exam: Negative ankle edema Lower extremities: Negative lower extremity edema Neuro/Mental Status: A/OX4, coherent. Thoughts/Psych: Normal thought pattern. Appropriate mood and affect. Good judgment and insight. Appearance: No acute distress. Skin Exam: Normal inspection. Normal color. Warm and dry. Labs/Diagnostic Data Labs Test 10/27/25 05:45 10/26/25 21:34 10/26/25 09:13 10/26/25 08:05 Range/Units Sodium Level 140 136-145 mmol/L Potassium Level 4.4 3.5-5.1 mmol/L Chloride Level 105 98-107 mmol/L Carbon Dioxide Level 24 20-31 mmol/L Anion Gap 11 5-15 Blood Urea Nitrogen 11 9-23 mg/dL Creatinine 0.93 0.550-1.02 mg/dL Glomerular Filtration Rate Calc 77 >90 mL/min BUN/Creatinine Ratio 11.8 10.0-20.0 Serum Glucose 143 H 74-106 mg/dL Calcium Level 9.9 8.7-10.4 mg/dL Magnesium Level 2.1 1.6-2.6 mg/dL Triglycerides Level 82 < 150 mg/dL Cholesterol Level 238 H < 200 mg/dL LDL Cholesterol 173 H < 100 mg/dL HDL Cholesterol 57 40-59 mg/dL POC Glucose 165 H 70-106 mg/dl Influenza Type A Antigen Negative Negative Influenza Type B Antigen Negative Negative SARS-CoV-2 Antigen (Rapid) Negative NEGATIVE White Blood Count 7.2 4.4-10.8 10^3/uL Red Blood Count 5.24 H 4.0-5.20 10^6/uL Hemoglobin 13.3 12.2-16.2 g/dL Hematocrit 42.1 # 36.0-46.0 % Mean Corpuscular Volume 80.4 80.0-100.0 fL Mean Corpuscular Hemoglobin 25.3 L 28.0-32.0 pg Mean Corpuscular Hemoglobin Concent 31.5 L 32.0-36.0 g/dL Red Cell Distribution Width 18.7 H 11.8-14.3 % Platelet Count 153 140-450 10^3/uL Mean Platelet Volume 9.1 6.9-10.8 fL Neutrophils (%) (Auto) 55.6 37.0-80.0 % Lymphocytes (%) (Auto) 36.3 10.0-50.0 % Monocytes (%) (Auto) 5.9 0.0-12.0 % Eosinophils (%) (Auto) 1.4 0.0-7.0 % Basophils (%) (Auto) 0.8 0.0-2.0 % Neutrophils # (Auto) 4.0 1.6-8.6 10 ^3/uL Lymphocytes # (Auto) 2.6 0.4-5.4 10 ^3/uL Monocytes # (Auto) 0.4 0-1.3 10 ^3/uL Eosinophils # (Auto) 0.1 0-0.8 10 ^3/uL Basophils # (Auto) 0.1 0-0.2 10 ^3/uL Nucleated Red Blood Cells 0.2 % Total Bilirubin 0.5 0.2-1.0 mg/dL Aspartate Amino Transferase (AST) 31 13-40 U/L Alanine Aminotransferase (ALT) 23 7-40 U/L Alkaline Phosphatase 71 46-116 U/L Total Protein 8.2 5.7-8.2 g/dL Albumin 4.2 3.2-4.8 g/dL Test 10/26/25 02:41 10/25/25 17:40 10/25/25 16:58 10/25/25 14:40 Range/Units Vitamin B12 Level 616 211-911 pg/mL Vitamin D 25-Hydroxy 38.4 30.0-100 ng/mL Folic Acid 14.09 >5.38 ng/mL Thyroid Stimulating Hormone (TSH) 3.08 0.55-4.78 uIU/mL Troponin I High Sensitivity 3 L </=34 ng/L Urine Color Colorless Yellow Urine Clarity Clear Clear Urine pH 7.0 5.0-9.0 Urine Specific [place] 1.011 1.001-1.035 Urine Protein Negative Negative Urine Ketones Negative Negative Urine Blood Negative Negative /uL Urine Nitrite Negative Negative Urine Bilirubin Negative Negative Urine Urobilinogen Normal Negative mg/dL Urine Leukocyte Esterase Negative Negative /uL Urine RBC <1 0 - 4 /hpf Urine Microscopic WBC < 1 0-5 /HPF Urine Squamous Epithelial Cells Few <5 /hpf Urine Bacteria None seen None Seen /hpf Urine Glucose Normal Normal mg/dL Urine Opiates Screen Neg NEGATIVE Urine Fentanyl Screen Neg NEGATIVE Urine Barbiturates Screen Neg NEGATIVE Urine Phencyclidine Screen Neg NEGATIVE Urine Amphetamines Screen Neg NEGATIVE Urine Benzodiazepines Screen Neg NEGATIVE Urine Cocaine Screen Neg NEGATIVE Urine Cannabinoids Screen Neg NEGATIVE Hemoglobin A1c 6.0 H <5.7 % A1C Assessment Chest pain, rule out coronary ischemia Coronary artery disease status post PTCA x 2 ANIBAL (on ASA) Rule out structural heart disease History myocardial infarction Hypertension Dyslipidemia Obstructive sleep apnea with CPAP use at night Asthma Peripheral neuropathy Seizure disorder Morbid obesity Plan/Recommendation We will continue with the following plan/recommendations (Dr. Mayorga): * Transthoracic echocardiogram to evaluate cardiac function * Chest pain protocol * HEART score: 4 points * Single antiplatelet therapy and lipid-lowering agent * Nuclear stress test * Upgrade to telemetry for close cardiac surveillance Case discussed with . Given patient's clinical presentation and comorbidities, we will proceed with a nuclear stress test. Plan discussed with the patient in full detail. The patient is agreeable to undergo nuclear stress test. We will schedule the patient at soonest availability on 10/27/2025. T lasha you for allowing us to care for this patient. Please call with any questions or concerns. Critical care time spent: 44 minutes This medical document was created using an electronic medical record system with voice recognition software and computerized dictation system. Although this document has been carefully reviewed, there might still be some phonetic and typ ographical errors. Occasional wrong-word or ``sound-alike substitutions may have occurred due to the inherent limitations of voice recognition software. These areas are purely typographical due to imperfections of the software programs and do not reflect any compromise in the patient's medical care. Please read the chart carefully and recognize, using context, where these subs titutions have occurred. Plan discussed with: Patient NYHA Physical activity limitations: NA Date of Service: Oct 27, 2025 Billing Provider: LEONOR MUNROE Cardiology Common Codes: [id number] INP/OBS CARE (High) Cardiology Consultation Codes: [id number] CONSULT <45MIN LEONOR MUNROE Oct 27, 2025 10:12
[2025-10-27] MEDS: REGADENOSON 0.4 MG/5 ML SYRG IV ONE ×2 (13:35→13:42)
--- NOTE | 2025-10-27 16:35 | DVHPNRES ---
Progress Note Date Seen: Oct 27, 2025 Resident Creating Document: JESSICA STRE[address] RESIDENT Medical Necessity Reason Pt with a Central, PICC or Fol: No Subjective Review of Systems 44-year-old female with a past medical history of coronary artery disease, status post PTCA x2 (diagnosed in 2013 during ), hypertension, and diabetes, disc disease, asthma, chronic back pain who presents with chest pain. Chest pain started 3 days before admission while she was walking, 8/10, intermittent, radiating to the left arm and back, associated shortness of breaths and dry cough, nausea but no vomiting. Patient denied any fever, palpitation, acute joint redness or swelling, diarrhea, change in vision or dysarthria. Patient reported she was taking medicine off and on but not regularly, was not follow up with the PCP or Cardiology due to financial issue. Initial lab workup revealed EKG no acute changes, troponin I and BNP with a normal limit. Hemoglobin A1c 6.0. Chest x-ray no acute abnormality. UDS negative, urinalysis negative for UTI. COVID and flu negative. Pain is exertional and worsens with walking. She has not followed with cardiology for many years. EKG is normal without ST-segment elevations. Serial troponins are negative. CBC, BMP, UA, and urine tox are normal. Chest X-ray is unremarkable. Home medications include [place], Tizanidine, Naloxone, Omeprazole, and Oxybutynin. Blood pressures on arrival were elevated, up to 165/103 and later 146/86. She will be admitted for further evaluation. PMH:coronary artery disease, status post PTCA x2 (diagnosed in 2013 during ), hypertension, and diabetes, disc disease, asthma, chronic back pain PSH: Left ovarian removal due to cyst Social history: Occasional alcoholic, denies smoking or drug abuse, lives with the son and daughter Allergy pork ROS Cardiovascular- d chest pain, shortness of breaths, cough Respiratory cough, shortness of breaths Gastrointestinal- denies any rectal bleeding, nausea or vomiting Musculoskeletal-denies acute joint swelling or tenderness or redness Neurological- denies acute dysarthria, dysphagia, change in vision Psychiatry- denies depression or SI or HI Skin- denies acute rash or purpura Patient was seen today at bedside, labs and chart reviewed, Patient reported chest pain has improved Pending echo 2D Patient was seen by cardiology recommended for nuclear stress test-pending report Objective vital signs Vital Sign Date Time Temp Pulse Resp B/P (MAP) Pulse Ox O2 Delivery O2 Flow Rate FiO2 10/27/25 13:00 98.6 101 16 124/74 (91) 95 98.6 10/27/25 06:49 Room Air 10/27/25 06:49 0 21 Total Intake and Output 10/26/25 10/26/25 10/27/25 15:00 23:00 07:00 Intake Total 550 ml 650 ml Balance 550 ml 650 ml medications Current Medications Medications Dose Ordered Sig/Karthik Route Start Time Stop Time Status Last Admin Dose Admin Acetaminophen 650 mg Q6HP PRN PO 10/25/25 17:45 Acetaminophen/ Hydrocodone Bitart 1 tab Q4HP PRN PO 10/25/25 17:45 10/26/25 21:39 1 TAB Aspirin 81 mg DAILY PO 10/26/25 10:00 10/27/25 11:39 81 MG Diagnostic Test (Pha) 1 strip ACHS 10/25/25 22:00 10/27/25 11:39 1 STRIP Insulin Human Regular ACHS SC 10/25/25 22:00 Dextrose 50 ml UD PRN IV 10/25/25 17:45 Losartan Potassium 50 mg DAILY PO 10/25/25 17:45 10/27/25 11:39 50 MG Atorvastatin Calcium 20 mg HS PO 10/26/25 07:30 10/26/25 21:31 20 MG Albuterol 2.5 mg Q4HR NEB 10/26/25 09:15 10/26/25 14:24 2.5 MG Ipratropium [place] 0.5 mg Q4HWA NEB 10/26/25 09:15 10/26/25 14:24 0.5 MG Methylprednisolone Sodium Succinate 40 mg BID IV 10/26/25 09:15 10/27/25 11:38 40 MG Heparin Sodium (Porcine) 5,000 units Q12HR SC 10/26/25 10:00 Hold Examination General examination- awake, alert, oriented HEENT- PEERLA, no acute nasal discharge Cardiovascular- S1-S2 audible, rate and rhythm regular, no murmur, chest wall tenderness positive on palpation Respiratory- lung crackles, vesicular breath sounds with a prolonged explained Gastrointestinal-nontender, bowel sound+. Nondistended Musculoskeletal-no acute joint swelling or tenderness or redness Lower extremity- no leg edema Neurological- cranial nerves intact, no acute dysarthria or dysphagia Psychiatry- denies depression or SI or HI Skin- no acute rash or purpura laboratory and microbiology Laboratory Tests 10/27/25 05:45 10/26/25 08:05 Test 10/27/25 05:45 Range/Units Serum Glucose 143 H 74-106 mg/dL Problem List/Assessment/Plan Problem List/Assessment/Plan Assessment and plan Acute chest pain, rule out acute coronary syndrome # CAD, status post PTCA x2 in 2014 in [place] # hypertension # hyperlipidemia -EKG acute ST or T-wave changes -troponin I with a normal limit -BNP with a normal limit -continue aspirin as prescribed -atorvastatin as prescribed -Resumed home medication losartan -pending echo 2D report -seen by cardiology recommended for nuclear stress test, pending report # asthma with the acute exacerbation -nebulization with albuterol and ipratropium bromide at the prescribed -resumed home medication montelukast # obesity -counseled about the effect of obesity on health Goals of care, Code status full code PUD prophylaxis: Pantoprazole DVT prophylaxis: Heparin Plan discussed with Dr. Gordon , nursing staff, Total time spent on patient evaluation, chart review, assessment and plan, discussion discussion >35 minutes Plan discussed with: Patient, Other (RN) My Orders My Orders Orders - JESSICA STRE[address] RESIDENT Procedure Category Date Status Time Montelukast Tablet PHA 10/28/25 Verified (Singulair Tablet) 10:00 Visit Coding STANDARD RES Billing Provider: LUKE GORDON MD Date of Service if different f: Oct 27, 2025 Common Visit Codes: [id number] INP/OBS CARE(HIGH) [address]ICA [address] RESIDENT Oct 27, 2025 16:35 QUYNH SANDERS RESIDENT Oct 27, 2025 18:36
[2025-10-27] MEDS: ATORVASTATIN 20 MG TAB PO SCH (22:10)
[2025-10-28] VITALS (8 sets, daily range): BP systolic 135–148; BP diastolic 80–95; PULSE 58–83; RESP 18–19; TEMP 97.4–98.4; O2SAT 95–100
[2025-10-28 07:05] LABS: Anion Gap 10 (5-15); Carbon Dioxide 25 mmol/L (20-31); Chloride 105 mmol/L (98-107); Potassium 4.1 mmol/L (3.5-5.1); Sodium 140 mmol/L (136-145)
[2025-10-28 07:06] LABS: Calcium 9.3 mg/dL (8.7-10.4)
[2025-10-28 07:11] LABS: BUN/Creatinine Ratio 18.0 (10.0-20.0); Blood Urea Nitrogen 16 mg/dL (9-23); Glucose 107 mg/dL (74-106); Magnesium 2.2 mg/dL (1.6-2.6)
[2025-10-28] MEDS ORDERED: IPRATROPIUM BROM 0.5 MG/2.5ML INH SOL NEB PRN (09:00)
[2025-10-28] MEDS ORDERED: ALBUTEROL SULF 2.5 MG/0.5ML(0.5%) NEB SOLN NEB PRN (09:00)
[2025-10-28] MEDS: MONTELUKAST SODIUM 10 MG TAB PO SCH (09:21)
--- NOTE | 2025-10-28 14:43 | DVHSR ---
APPROVED REPORT EXAM: Two-dimensional and M-mode echocardiogram with Doppler and color Doppler. Blood Pressure: 139/90 mmHg INDICATION Chest Pain RISK FACTORS Height: 68, Weight: 250 DIMENSIONS LVDd 4.2 (3.8-5.7cm) LA (2D) 3.7 (1.9-4.0cm) Aortic Root 3.9 (2.0-3.7cm) LVDs 2.7 (2.5-4.0cm) LA (MM) (1.9-4.0cm) Aortic Cusp Exc 2.0 (1.5-2.0cm) EF (%) 65.0 (55-70%) Rt. Atrium 4.0 (1.9-4.0cm) Asc. Aorta cm Mitral Valve Mitral Mitral Stenosis E wave 0.57m/s MV Mean GR. mmHg A wave 0.73m/s MV Peak GR. mmHg E/A ratio 0.8 2D MVA cm2 DECEL Time 167ms PRESS 1/2 Time 43ms IVRT ms Dop MVA 5.10cm2 Aortic Valve Aortic Valve Aortic Stenosis V1 1.23m/s AO Mean GR. 5mmHg V2 1.49m/s AO Peak GR. 9mmHg LVOT Diameter 2.1 (1.8-2.4cm) Doppler PREM 2.86cm2 Pulmonic Valve V2 1.44m/s Conclusion 1) Normal right and left ventricle systolic function with estimated ejection fraction of 60-65%. Normal LV wall motion. LV diastolic function is normal 2) No significant valbular pathology was seen
--- NOTE | 2025-10-28 14:49 | DVHPN2 ---
Consult Progress Note Objective vital signs Vital Sign Date Time Temp Pulse Resp B/P (MAP) Pulse Ox O2 Delivery O2 Flow Rate FiO2 10/28/25 12:40 97.4 58 19 147/94 (111) 100 97.4 10/28/25 10:00 Room Air* 0 21 Total Intake and Output 10/27/25 10/27/25 10/28/25 15:00 23:00 07:00 Intake Total 710 ml 400 ml Balance 710 ml 400 ml medications Current Medications Medications Dose Ordered Sig/Karthik Route Start Time Stop Time Status Last Admin Dose Admin Acetaminophen 650 mg Q6HP PRN PO 10/25/25 17:45 Acetaminophen/ Hydrocodone Bitart 1 tab Q4HP PRN PO 10/25/25 17:45 10/28/25 00:25 1 TAB Aspirin 81 mg DAILY PO 10/26/25 10:00 10/28/25 09:21 81 MG Diagnostic Test (Pha) 1 strip ACHS 10/25/25 22:00 10/28/25 10:40 1 STRIP Insulin Human Regular ACHS SC 10/25/25 22:00 Dextrose 50 ml UD PRN IV 10/25/25 17:45 Losartan Potassium 50 mg DAILY PO 10/25/25 17:45 10/28/25 09:21 50 MG Heparin Sodium (Porcine) 5,000 units Q12HR SC 10/26/25 10:00 Hold Montelukast Sodium 10 mg DAILY PO 10/28/25 10:00 10/28/25 09:21 10 MG Atorvastatin Calcium 80 mg HS PO 10/27/25 22:00 10/27/25 22:10 80 MG Albuterol 2.5 mg Q6HPRN PRN NEB 10/28/25 09:00 Ipratropium [place] 0.5 mg Q6HPRN PRN NEB 10/28/25 09:00 laboratory and microbiology Laboratory Tests 10/28/25 05:23 10/26/25 08:05 Test 10/28/25 05:23 Range/Units Serum Glucose 107 H 74-106 mg/dL Problem List/Assessment/Plan Problem List/Assessment/Plan Chest pain, rule out coronary ischemia Coronary artery disease status post PTCA x 2 ANIBAL (on ASA) Rule out structural heart disease History myocardial infarction Hypertension Dyslipidemia Obstructive sleep apnea with CPAP use at night Asthma Peripheral neuropathy Seizure disorder Morbid obesity Plan/Recommendation We will continue with the following plan/recommendations (Dr. Mayorga): * Transthoracic echocardiogram to evaluate cardiac function * Chest pain protocol * HEART score: 4 points * Single antiplatelet therapy and lipid-lowering agent * Nuclear stress test * Upgrade to telemetry for close cardiac surveillance Case discussed with . Stress test showing apical infarct, no inducible ischemia. Follow up echo with normal EF. Continue medical management no further cardiac intervention indicated at this time, stable for DC from Cardiology standpoint. Thank you for allowing us to participate in this patient's care. Will sign off. Critical care, time spent: 36 minutes This medical document was created using an electronic medical record system with voice recognition software and computerized dictation system. Although this document has been carefully reviewed, there might still be some phonetic and typographical errors. Occasional wrong-word or ``sound-alike substitutions may have occurred due to the inherent limitations of voice recognition software. These areas are purely typographical due to imperfections of the software programs and do not reflect any compromise in the patient's medical care. Please read the chart carefully and recognize, using context, where these substitutions have occurred. Thank you for allowing me to participate in the management of this patient. The treatment plan was discussed with and agreed upon by patient/family including requesting consultants and ordering of imaging/procedures. Plan discussed with: Patient Date of Service: Oct 28, 2025 Billing Provider: WILL SOUZA Common Visit Codes: [id number] INP/OBS CARE(HIGH), [id number] CARE 30-74 MIN WILL SOUZA Oct 28, 2025 14:49
--- NOTE | 2025-10-28 14:57 | DVHDSRES ---
Discharge Summary Date of Admission Resident Creating Document: JESSICA STRE[address] RESIDENT Oct 25, 2025 at 17:42 Date of Discharge: Oct 28, 2025 Admitting Diagnosis Chest pain due to Acute coronary syndrome Wounds: Labs/Diagnostic Data: Laboratory Results Test 10/28/25 10:39 10/28/25 05:23 10/27/25 05:45 10/26/25 09:13 POC Glucose 98 mg/dl (70-106) Sodium Level 140 mmol/L (136-145) Potassium Level 4.1 mmol/L (3.5-5.1) Chloride Level 105 mmol/L (98-107) Carbon Dioxide Level 25 mmol/L (20-31) Anion Gap 10 (5-15) Blood Urea Nitrogen 16 mg/dL (9-23) Creatinine 0.89 mg/dL (0.550-1.02) Glomerular Filtration Rate Calc 81 mL/min (>90) BUN/Creatinine Ratio 18.0 (10.0-20.0) Serum Glucose 107 mg/dL (74-106) Calcium Level 9.3 mg/dL (8.7-10.4) Magnesium Level 2.2 mg/dL (1.6-2.6) Triglycerides Level 82 mg/dL (< 150) Cholesterol Level 238 mg/dL (< 200) LDL Cholesterol 173 mg/dL (< 100) HDL Cholesterol 57 mg/dL (40-59) Beta HCG, Quantitative 0.9 mIU/mL (1.5-4.2) Influenza Type A Antigen Negative (Negative) Influenza Type B Antigen Negative (Negative) SARS-CoV-2 Antigen (Rapid) Negative (NEGATIVE) Test 10/26/25 08:05 10/26/25 02:41 10/25/25 17:40 10/25/25 16:58 White Blood Count 7.2 10^3/uL (4.4-10.8) Red Blood Count 5.24 10^6/uL (4.0-5.20) Hemoglobin 13.3 g/dL (12.2-16.2) Hematocrit 42.1 % (36.0-46.0) Mean Corpuscular Volume 80.4 fL (80.0-100.0) Mean Corpuscular Hemoglobin 25.3 pg (28.0-32.0) Mean Corpuscular Hemoglobin Concent 31.5 g/dL (32.0-36.0) Red Cell Distribution Width 18.7 % (11.8-14.3) Platelet Count 153 10^3/uL (140-450) Mean Platelet Volume 9.1 fL (6.9-10.8) Neutrophils (%) (Auto) 55.6 % (37.0-80.0) Lymphocytes (%) (Auto) 36.3 % (10.0-50.0) Monocytes (%) (Auto) 5.9 % (0.0-12.0) Eosinophils (%) (Auto) 1.4 % (0.0-7.0) Basophils (%) (Auto) 0.8 % (0.0-2.0) Neutrophils # (Auto) 4.0 10 ^3/uL (1.6-8.6) Lymphocytes # (Auto) 2.6 10 ^3/uL (0.4-5.4) Monocytes # (Auto) 0.4 10 ^3/uL (0-1.3) Eosinophils # (Auto) 0.1 10 ^3/uL (0-0.8) Basophils # (Auto) 0.1 10 ^3/uL (0-0.2) Nucleated Red Blood Cells 0.2 % Total Bilirubin 0.5 mg/dL (0.2-1.0) Aspartate Amino Transferase (AST) 31 U/L (13-40) Alanine Aminotransferase (ALT) 23 U/L (7-40) Alkaline Phosphatase 71 U/L (46-116) Total Protein 8.2 g/dL (5.7-8.2) Albumin 4.2 g/dL (3.2-4.8) Vitamin B12 Level 616 pg/mL (211-911) Vitamin D 25-Hydroxy 38.4 ng/mL (30.0-100) Folic Acid 14.09 ng/mL (>5.38) Thyroid Stimulating Hormone (TSH) 3.08 uIU/mL (0.55-4.78) Troponin I High Sensitivity 3 ng/L (</=34) Urine Color Colorless (Yellow) Urine Clarity Clear (Clear) Urine pH 7.0 (5.0-9.0) Urine Specific Doole 1.011 (1.001-1.035) Urine Protein Negative (Negative) Urine Ketones Negative (Negative) Urine Blood Negative /uL (Negative) Urine Nitrite Negative (Negative) Urine Bilirubin Negative (Negative) Urine Urobilinogen Normal mg/dL (Negative) Urine Leukocyte Esterase Negative /uL (Negative) Urine RBC <1 /hpf (0 - 4) Urine Microscopic WBC < 1 /HPF (0-5) Urine Squamous Epithelial Cells Few /hpf (<5) Urine Bacteria None seen /hpf (None Seen) Urine Glucose Normal mg/dL (Normal) Urine Opiates Screen Neg (NEGATIVE) Urine Fentanyl Screen Neg (NEGATIVE) Urine Barbiturates Screen Neg (NEGATIVE) Urine Phencyclidine Screen Neg (NEGATIVE) Urine Amphetamines Screen Neg (NEGATIVE) Urine Benzodiazepines Screen Neg (NEGATIVE) Urine Cocaine Screen Neg (NEGATIVE) Urine Cannabinoids Screen Neg (NEGATIVE) Test 10/25/25 14:40 Hemoglobin A1c 6.0 % A1C (<5.7) Other Laboratory Tests 10/28/25 05:23 10/26/25 08:05 Brief Hx & Hospital Course: 44-year-old female with a past medical history of coronary artery disease, status post PTCA x2 (diagnosed in 2013 during ), hypertension, and diabetes, disc disease, asthma, chronic back pain who presents with chest pain. Chest pain started 3 days before admission while she was walking, 8/10, intermittent, radiating to the left arm and back, associated shortness of breaths and dry cough, nausea but no vomiting. Patient denied any fever, palpitation, acute joint redness or swelling, diarrhea, change in vision or dysarthria. Patient reported she was taking medicine off and on but not regularly, was not follow up with the PCP or Cardiology due to financial issue. Initial lab workup revealed EKG no acute changes, troponin I and BNP with a normal limit. Hemoglobin A1c 6.0. Chest x-ray no acute abnormality. UDS negative, urinalysis negative for UTI. COVID and flu negative. Patient was seen by Cardiology, recommended for nuclear stress test, nonsignificant. Echo 2D LVEF 60%. Cardiology cleared patient for discharge. Patient is being discharged with the aspirin and atorvastatin. Patient was advised to follow up with the discharge clinic, PCP and also with the bulk sealer. Patient's meds were sent to the pharmacy electronically. Patient was hemodynamically stable on discharge. All questions answered. Counseled about the importance of med compliance. General examination- awake, alert, oriented HEENT- PEERLA, no acute nasal discharge Cardiovascular- S1-S2 audible, rate and rhythm regular, no murmur, chest wall tenderness positive on palpation Respiratory- lung crackles, vesicular breath sounds with a prolonged explained Gastrointestinal-nontender, bowel sound+. Nondistended Musculoskeletal-no acute joint swelling or tenderness or redness Lower extremity- no leg edema Neurological- cranial nerves intact, no acute dysarthria or dysphagia Psychiatry- denies depression or SI or HI Skin- no acute rash or purpura Plan of care discussed with Dr. Johnson Consults/Reason for consult Patient Name: JEMIMA THOMSON Acct: [id number] Room: [facility] /Bed: A Attending Physician: JESSICA STRE[address] RESIDENT Loc: [facility] Unit: [id number] CONSULTATION REPORT . ................................................................................ ............................................................................... Date Seen: Oct 27, 2025 Referring Physician MD Jorge resident Reason for Consultation Chest pain History of Present Illness This is a 44-year-old female patient who presents to emergency room with chief complaint of chest pain. The patient reports that she has been experiencing chest pain for approximately four days. She describes the pain as unprovoked, intermittent, pressure-like in nature, substernal with radiation to her upper back. She denies any aggravating or alleviating factors. Initial twelve lead electrocardiogram reveals normal sinus rhythm with nonspecific ST depression to inferior lead (III). Serial troponin levels have been negative x 3. Significant past medical history includes coronary artery disease status post PTCA X 2 ANIBAL (on ASA), myocardial infarction, hypertension, hyperlipidemia, obstructive sleep apnea with CPAP use at night, asthma, type 2 diabetes mellitus, peripheral neuropathy, seizure disorder, and morbid obesity. The patient reports having a myocardial infarction while she was with her daughter in 2013. She reports undergoing a coronary angiogram in 2013 in [place] in which two drug-eluting stents were placed. The patient does not currently follow up with a bulk sealer in the outpatient setting. She does mention a previous stress test in 2021 which she states was normal. Past Medical History Past medical history reviewed. No other significant than mentioned above. Past Surgical History Left oophorectomy Family History: Cardiovascular disease G8 MOTHER FH: kidney disease G8 MOTHER Family History Family history reviewed. Social History Denies the use of tobacco, alcohol or illicit drugs. Allergies: Uncoded Allergies: pork (Allergy, Unknown, 10/26/25) Home Meds Reported Medications Nitroglycerin (NTROSTAT SUBLINGUAL) 0.4 Mg Sl, 0.4 MG SL PRN, TAB *MAY REPEAT EVERY 5 MINUTES X 3 TOTAL IF NO RELIEF, INITIATE ANALGESIC THERAPY. NOTIFY PHYSICIAN *Do not crush. 10/25/25 Ezetimibe (Zetia) 10 Mg Tab, 1 TAB PO DAILY, #30 TAB 5 Refills 10/25/25 Amlodipine Besylate (NORVASC TABLET) 5 Mg Tb, 1 TAB PO DAILY, #30 TAB 5 Refills 10/25/25 Montelukast Sodium (MONTELUKAST SODIUM) 10 Mg Tab, 1 TAB PO DAILY, #30 TAB 5 Refills 10/25/25 Pregabalin (Lyrica) 75 Mg Cap, 1 CAP PO BID, #60 CAP 1 Refill 10/25/25 Rimegepant Sulfate (Nurtec) 75 Mg Tab, 75 MG PO, TAB 10/25/25 Fluticasone-Salmeterol (Advair Diskus 250/50) 1 Puff Ih, 1 PUFF INH BID, #1 INHALER 5 Refills 10/25/25 Ergocalciferol (VITAMIN D2) 2,000 Unit Tab, 56410 UNIT PO QWEEKLY, TAB 10/25/25 Oxybutynin Chloride (Oxybutynin Chloride) 5 Mg Tab, 5 MG PO, TAB 10/25/25 Rosuvastatin Calcium (Crestor) 20 Mg Tab, 1 TAB PO DAILY, #90 TAB 3 Refills 10/25/25 Hydrocodone-Acetaminophen (Hydrocodone/Acetaminophen 5-325 mg) 1 Tab Tab, 1 TAB PO, TAB 10/25/25 Metformin Hydrochloride (METFORMIN HCL ER) 500 Mg Tab, 500 MG PO, TAB 10/25/25 Aspirin (Aspir-81) 81 Mg Tab, 1 TAB PO DAILY, #30 TAB 5 Refills 10/25/25 Losartan Potassium (Losartan Potassium) 25 Mg Tab, 25 MG PO BID, TAB 10/25/25 Home Meds Home medications reviewed. Current Medications Current Medications Medications (Trade) Dose Ordered Sig/Karthik Route PRN Reason Start Time Stop Time Status Last Admin Enoxaparin Sodium (Lovenox) 40 mg DAILY SC 10/26/25 10:00 10/26/25 09:09 DC Aspirin 81 mg DAILY PO 10/26/25 10:00 10/26/25 09:58 Heparin Sodium (Porcine) 5,000 units Q12HR SC 10/26/25 10:00 Review of Systems Constitutional: No symptom reported Ears, Nose, & Throat: No symptom reported Eyes: No symptom reported Neurological: No symptoms reported Pulmonary/Respiratory: No symptoms reported Cardiovascular: Chest pain Gastrointestinal: No symptom reported Genitourinary: No symptom reported Musculoskeletal: No symptom reported Skin: No symptom reported Psychiatric: No symptom reported Endocrine: No symptom reported Hematologic/Lymphatic: No symptom reported Vital Signs Vital Signs Date Time Temp Pulse Resp B/P (MAP) Pulse Ox O2 Delivery O2 Flow Rate FiO2 10/27/25 09:00 97.6 87 16 136/89 (105) 97 97.6 10/27/25 06:49 Room Air 10/27/25 06:49 0 21 Physical Exam General Appearance: Cooperative. Morbidly obese Pulmonary/Respiratory: Clear, bilateral breaths sounds. Cardiovascular/Chest: Regular rate and rhythm. Peripheral Pulses: 2+ Radial (R). 2+ Radial (L). 2+ Pedal (R). 2+ Pedal (L) Abdominal Exam: Normal bowel sounds. Ankle Exam: Negative ankle edema Lower extremities: Negative lower extremity edema Neuro/Mental Status: A/OX4, coherent. Thoughts/Psych: Normal thought pattern. Appropriate mood and affect. Good judgment and insight. Appearance: No acute distress. Skin Exam: Normal inspection. Normal color. Warm and dry. Labs/Diagnostic Data Labs Test 10/27/25 05:45 10/26/25 21:34 10/26/25 09:13 10/26/25 08:05 Range/Units Sodium Level 140 136-145 mmol/L Potassium Level 4.4 3.5-5.1 mmol/L Chloride Level 105 98-107 mmol/L Carbon Dioxide Level 24 20-31 mmol/L Anion Gap 11 5-15 Blood Urea Nitrogen 11 9-23 mg/dL Creatinine 0.93 0.550-1.02 mg/dL Glomerular Filtration Rate Calc 77 >90 mL/min BUN/Creatinine Ratio 11.8 10.0-20.0 Serum Glucose 143 H 74-106 mg/dL Calcium Level 9.9 8.7-10.4 mg/dL Magnesium Level 2.1 1.6-2.6 mg/dL Triglycerides Level 82 < 150 mg/dL Cholesterol Level 238 H < 200 mg/dL LDL Cholesterol 173 H < 100 mg/dL HDL Cholesterol 57 40-59 mg/dL POC Glucose 165 H 70-106 mg/dl Influenza Type A Antigen Negative Negative Influenza Type B Antigen Negative Negative SARS-CoV-2 Antigen (Rapid) Negative NEGATIVE White Blood Count 7.2 4.4-10.8 10^3/uL Red Blood Count 5.24 H 4.0-5.20 10^6/uL Hemoglobin 13.3 12.2-16.2 g/dL Hematocrit 42.1 # 36.0-46.0 % Mean Corpuscular Volume 80.4 80.0-100.0 fL Mean Corpuscular Hemoglobin 25.3 L 28.0-32.0 pg Mean Corpuscular Hemoglobin Concent 31.5 L 32.0-36.0 g/dL Red Cell Distribution Width 18.7 H 11.8-14.3 % Platelet Count 153 140-450 10^3/uL Mean Platelet Volume 9.1 6.9-10.8 fL Neutrophils (%) (Auto) 55.6 37.0-80.0 % Lymphocytes (%) (Auto) 36.3 10.0-50.0 % Monocytes (%) (Auto) 5.9 0.0-12.0 % Eosinophils (%) (Auto) 1.4 0.0-7.0 % Basophils (%) (Auto) 0.8 0.0-2.0 % Neutrophils # (Auto) 4.0 1.6-8.6 10 ^3/uL Lymphocytes # (Auto) 2.6 0.4-5.4 10 ^3/uL Monocytes # (Auto) 0.4 0-1.3 10 ^3/uL Eosinophils # (Auto) 0.1 0-0.8 10 ^3/uL Basophils # (Auto) 0.1 0-0.2 10 ^3/uL Nucleated Red Blood Cells 0.2 % Total Bilirubin 0.5 0.2-1.0 mg/dL Aspartate Amino Transferase (AST) 31 13-40 U/L Alanine Aminotransferase (ALT) 23 7-40 U/L Alkaline Phosphatase 71 46-116 U/L Total Protein 8.2 5.7-8.2 g/dL Albumin 4.2 3.2-4.8 g/dL Test 10/26/25 02:41 10/25/25 17:40 10/25/25 16:58 10/25/25 14:40 Range/Units Vitamin B12 Level 616 211-911 pg/mL Vitamin D 25-Hydroxy 38.4 30.0-100 ng/mL Folic Acid 14.09 >5.38 ng/mL Thyroid Stimulating Hormone (TSH) 3.08 0.55-4.78 uIU/mL Troponin I High Sensitivity 3 L </=34 ng/L Urine Color Colorless Yellow Urine Clarity Clear Clear Urine pH 7.0 5.0-9.0 Urine Specific Doole 1.011 1.001-1.035 Urine Protein Negative Negative Urine Ketones Negative Negative Urine Blood Negative Negative /uL Urine Nitrite Negative Negative Urine Bilirubin Negative Negative Urine Urobilinogen Normal Negative mg/dL Urine Leukocyte Esterase Negative Negative /uL Urine RBC <1 0 - 4 /hpf Urine Microscopic WBC < 1 0-5 /HPF Urine Squamous Epithelial Cells Few <5 /hpf Urine Bacteria None seen None Seen /hpf Urine Glucose Normal Normal mg/dL Urine Opiates Screen Neg NEGATIVE Urine Fentanyl Screen Neg NEGATIVE Urine Barbiturates Screen Neg NEGATIVE Urine Phencyclidine Screen Neg NEGATIVE Urine Amphetamines Screen Neg NEGATIVE Urine Benzodiazepines Screen Neg NEGATIVE Urine Cocaine Screen Neg NEGATIVE Urine Cannabinoids Screen Neg NEGATIVE Hemoglobin A1c 6.0 H <5.7 % A1C Assessment Chest pain, rule out coronary ischemia Coronary artery disease status post PTCA x 2 ANIBAL (on ASA) Rule out structural heart disease History myocardial infarction Hypertension Dyslipidemia Obstructive sleep apnea with CPAP use at night Asthma Peripheral neuropathy Seizure disorder Morbid obesity Plan/Recommendation We will continue with the following plan/recommendations (Dr. Mayorga): * Transthoracic echocardiogram to evaluate cardiac function * Chest pain protocol * HEART score: 4 points * Single antiplatelet therapy and lipid-lowering agent * Nuclear stress test * Upgrade to telemetry for close cardiac surveillance Case discussed with . Given patient's clinical presentation and comorbidities, we will proceed with a nuclear stress test. Plan discussed with the patient in full detail. The patient is agreeable to undergo nuclear stress test. We will schedule the patient at soonest availability on 10/27/2025. Thank you for allowing us to care for this patient. Please call with any questions or concerns. Critical care time spent: 44 minutes This medical document was created using an electronic medical record system with voice recognition software and computerized dictation system. Although this document has been carefully reviewed, there might still be some phonetic and typographical errors. Occasional wrong-word or ``sound-alike substitutions may have occurred due to the inherent limitations of voice recognition software. These areas are purely typographical due to imperfections of the software programs and do not reflect any compromise in the patient's medical care. Please read the chart carefully and recognize, using context, where these substitutions have occurred. Plan discussed with: Patient NYHA 2 Physical activity limitations: NA Date of Service: Oct 27, 2025 Billing Provider: LEONOR MUNROE Cardiology Common Codes: 63895-XYSQDLY INP/OBS CARE (High) Cardiology Consultation Codes: 93747-[id number] CONSULT <45MIN LEONOR MUNROE Oct 27, 2025 10:12 DICTATED BY:LEONOR MUNROE DICTATED DATE/TIME:10/27/25 1012 ELECTRONICALLY SIGNED BY:LEONOR MUNROE 10/27/25 1012 ELECTRONICALLY CO-SIGNED BY: Operations or Procedures [place] [address] Ph: [phone] DIAGNOSTIC IMAGING Diagnostic Imaging Report : [id number] Signed PATIENT: JEMIMA THOMSON NACCT: [id number] UNIT: [id number] : 1980 LOC: [facility] ROOM / BED: 0293T / A AGE / SEX: 44 / F ADM STATUS: ADM IN SERVICE 4962 ORDERING PHYSICIAN: JOSE M TRAN RESIDENT PROCEDURE(s): ECIDC - ECHO 2D MODE CARDIAC DOP REASON: chest pain ORDER NUMBER(s): [id number], ACCESSION NUMBER(s): [id number] APPROVED REPORT EXAM: Two-dimensional and M-mode echocardiogram with Doppler and color Doppler. Blood Pressure: 139/90 mmHg INDICATION Chest Pain RISK FACTORS Height: 68, Weight: 250 DIMENSIONS LVDd 4.2 (3.8-5.7cm) LA (2D) 3.7 (1.9-4.0cm) Aortic Root 3.9 (2.0- 3.7cm) LVDs 2.7 (2.5-4.0cm) LA (MM) (1.9-4.0cm) Aortic Cusp Exc 2.0 (1.5- 2.0cm) EF (%) 65.0 (55-70%) Rt. Atrium 4.0 (1.9-4.0cm) Asc. Aorta cm Mitral Valve Mitral Mitral Stenosis E wave 0.57m/s MV Mean GR. mmHg A wave 0.73m/s MV Peak GR. mmHg E/A ratio 0.8 2D MVA cm2 DECEL Time 167ms PRESS 1/2 Time 43ms IVRT ms Dop MVA 5.10cm2 Aortic Valve Aortic Valve Aortic Stenosis V1 1.23m/s AO Mean GR. 5mmHg V2 1.49m/s AO Peak GR. 9mmHg LVOT Diameter 2.1 (1.8-2.4cm) Doppler RPEM 2.86cm2 Pulmonic Valve V2 1.44m/s Conclusion 1) Normal right and left ventricle systolic function with estimated ejection fraction of 60-65%. Normal LV wall motion. LV diastolic function is normal 2) No significant valbular pathology was seen SIGNED BY: PRAKASH VERA MD SIGNED DATE/TIME: 10/28/25 8602 CC: [address] [address] Ph: [phone] DIAGNOSTIC IMAGING Diagnostic Imaging Report : [id number] Signed PATIENT: JEMIMA MARTIENZ NACCT: [id number] UNIT: [id number] : 1980 LOC: ER ROOM / BED: / AGE / SEX: 44 / F ADM STATUS: REG ER SERVICE 1500 ORDERING PHYSICIAN: TANIA WU MD PROCEDURE(s): CXRP - CHEST PORTABLE REASON: sob ORDER NUMBER(s): [id number], ACCESSION NUMBER(s): [id number] CHEST RADIOGRAPH Indication: sob Technique: Single frontal view of the chest was obtained COMPARISON: None FINDINGS: Lines and Tubes: None Lungs: Clear Pleura: No effusion. No pneumothorax. Cardiomediastinal contours: Unremarkable Bones: Unremarkable IMPRESSION: No acute disease. ATED BY: IBRAHIMA PATTON MD DICTATED DATE/TIME: 10/25/251526 SIGNED BY: IBRAHIMA PATTON MD SIGNED DATE/TIME: 10/25/251526 CC: Condition at Discharge: Stable Final Diagnosis/Problems List #Acute chest pain due to unstable angina # musculoskeletal chest pain # CAD, status post PTCA x2 in 2013 in [place] # hypertension # hyperlipidemia # asthma with the acute exacerbation # obesity Discharge Disposition: Home Discharge Instruct/Medications Diet: Consistent carbohydrate, Cardiac 2g Na,low cholest Activity: No Restrictions, As Tolerated Follow Up/Referral: DC clinic PCP Cardiology Medications: As prescribed Scheduled Amlodipine Besylate (Norvasc Tablet), 1 TAB PO DAILY, (Reported) Aspirin (Aspir-81), 1 TAB PO DAILY, (Reported) Ergocalciferol (Vitamin D2), 50,000 UNIT PO QWEEKLY, (Reported) Ezetimibe (Zetia), 1 TAB PO DAILY, (Reported) Fluticasone-Salmeterol (Advair Diskus 250/50), 1 PUFF INH BID, (Reported) Losartan Potassium (Losartan Potassium), 25 MG PO BID, (Reported) Montelukast Sodium (Montelukast Sodium), 1 TAB PO DAILY, (Reported) Nitroglycerin (Ntrostat Sublingual), 0.4 MG SL PRN, (Reported) Pregabalin (Lyrica), 1 CAP PO BID, (Reported) Rosuvastatin Calcium (Crestor), 1 TAB PO DAILY, (Reported) Miscellaneous Medications Hydrocodone-Acetaminophen (Hydrocodone/Acetaminophen 5-325 mg), 1 TAB PO, (Reported) Metformin Hydrochloride (Metformin Hcl Er), 500 MG PO, (Reported) Oxybutynin Chloride (Oxybutynin Chloride), 5 MG PO, (Reported) Rimegepant Sulfate (Nurtec), 75 MG PO, (Reported) Discharge Statement: "Patient was advised to return to the ER or call 911 if any headaches, dizziness, shortness of breath, chest pain, abdominal pain, bleeding, fevers, or worsening of medical condition. Patient was counseled about treatment plan, medications, possible side effects, patientverbalized understanding. All questions were answered to the best of my ability. This discharge took greater then 30 minutes in planning, reviewing documentation, counseling the patient, and discussing with other team members." ASSESSMENT ASSESSMENT Assessment Visit Coding STANDARD RES Billing Provider: LILY JOHNSON MD Date of Service if different f: Oct 28, 2025 Common Visit Codes: 82041-RAL/OBS DISCH DAY >30min [address] RESIDENT Oct 28, 2025 14:57
--- NOTE | 2025-10-30 09:27 | DVHSR ---
APPROVED REPORT Exam: Nuclear Stress Test BMI: 0 Stress Test Details HR Max Heart Rate (APMHR): 174.907574 bpm Target HR (85% APMHR): 147.672168 bpm BP ECG Stress ECG Conclusion lvef 69% apex is infarct no severe ischemia noted NM EXAM: Myocardial Perfusion REST/STRESS Imaging Protocol: Rest Tc-99m/Stress Tc-99m 1 day Resting Data Rest SPECT myocardial perfusion imaging was performed in supine position 60 minutes following the intravenous injection of 10.0 mCi of Tc-99m Sestamibi. Time of rest injection: 12:05 Date: 10/27/2025 Time of rest imagin:05 Date: 10/27/2025 Administration Route: IV Administration Site: Right Arm Pharmacologic Stress Pharmacologic stress test was performed by injecting Regadenoson 0.4 mg IV push followed by the intravenous injection of 33.0 mCi of Tc-99m Sestamibi. Time of stress injection: 13:40 Date: 10/27/2025 Time of stress imagin:40 Date: 10/27/2025 Administration Route: IV Administration Site: Right Arm Gated Stress SPECT was performed 60 minutes after stress injection. The images were gated to evaluate regional wall motion and calculate left ventricular ejection fraction. Stress only was performed in the Supine position. Nuclear Conclusion Nuclear Findings: negative for ischemia lvef 69% apex is infarct no severe ischemia noted
== END 2025-10-28 18:45 | disposition home or self-care (01) | DRG 198 ==
LOC: ER 14:28 → OVERFLOW 17:42 → WEST WING 10-26 18:39 → TELE-WESTW 10-28 07:13
PROVIDERS: ADMIT Internal Medicine Geriatric Medicine; ATTEND Internal Medicine Geriatric Medicine
DX: I25.110 Atherosclerotic heart disease of native coronary artery with unstable angina pectoris (principal); J45.901 Unspecified asthma with (acute) exacerbation; E11.40 Type 2 diabetes mellitus with diabetic neuropathy, unspecified; I10 Essential (primary) hypertension; E66.01 Morbid (severe) obesity due to excess calories; G40.909 Epilepsy, unspecified, not intractable, without status epilepticus; Z20.822 Contact with and (suspected) exposure to COVID-19; I25.9 Chronic ischemic heart disease, unspecified; E78.5 Hyperlipidemia, unspecified; G47.33 Obstructive sleep apnea (adult) (pediatric); I25.2 Old myocardial infarction; Z98.61 Coronary angioplasty status; Z79.82 Long term (current) use of aspirin; Z90.721 Acquired absence of ovaries, unilateral; Z82.49 Family history of ischemic heart disease and other diseases of the circulatory system; Z68.38 Body mass index [BMI] 38.0-38.9, adult; Z91.014 Allergy to mammalian meats
CPT/HCPCS: 36415; 71045; 78452; 80048; 80053; 80061; 80307; 81001; 82306; 82607; 82746; 82962; 83036; 83735; 84443; 84484; 84702; 85025; 87426; 87804; 93005; 93017; 93306; 94640; G0378